=== PATIENT | male | born 1985 | race Caucasian/White ===

== ENCOUNTER 2016-09-14 15:01 | Emergency (ER) | payer BC ==
[~2016-09-14] VITALS: Ht 180.3 cm; Wt 111.0 kg
[2016-09-14 15:03] VITALS: BP 125/67; PULSE 82; RESP 20; TEMP 97.8; O2SAT 95
--- NOTE | 2016-09-14 15:12 | PD ---
Physical Exam Date Seen by Provider: September 14, 2016 Time Seen by Provider: 15:07 Narrative 31 YOWM C/O DEPRESSION OFF MEDS FOR 2 DAYS . IN [facility] FOR 2 WEEKS FROM [place]. HAS PSYCH DR IN [place]. CLAIMS SUICIDAL WITH NO PLAN. VSS wating for bed asignment Data Data Last Documented VS Vital Signs Date Time Temp Pulse Resp B/P Pulse Ox O2 Delivery O2 Flow Rate FiO2 09/14/16 15:03 97.8 82 20 125/67 95 Room Air [facility] Medical Record Reviewed: No Supervised Visit with JE: Neftaly Barrow September 14, 2016 15:12
[2016-09-14] MEDS ORDERED: HALO1TAB PO (15:42)
[2016-09-14] MEDS ORDERED: CLON2TAB PO (15:42)
[2016-09-14 15:51] LABS: AUTOMATED NEUTROPHIL # 4.4 TH/MM3 (1.8-7.7); BASOPHIL # 0.1 TH/MM3 (0-0.2); BASOPHIL % 0.8 % (0.0-2.0); EOSINOPHIL # 0.3 TH/MM3 (0-0.4); EOSINOPHIL % 2.5 % (0.0-4.0); HEMO FLAGS DIFF FINAL; LYMPH % 45.8 % (9.0-44.0); LYMPHOCYTE # 4.7 TH/MM3 (1.0-4.8); MEAN CELL VOLUME 89.1 FL (80.0-100.0); MEAN CORPUSCULAR HEMOGLOBIN 30.9 PG (27.0-34.0); MEAN CORPUSCULAR HGB CONC 34.7 % (32.0-36.0); MONO % 8.1 % (0.0-8.0); NEUT % 42.8 % (16.0-70.0); PLATELET COUNT 417 TH/MM3 (150-450); RED BLOOD COUNT 4.93 MIL/MM3 (4.50-5.90); RED CELL DISTRIBUTION WIDTH 12.6 % (11.6-17.2); WHITE BLOOD COUNT 10.2 TH/MM3 (4.0-11.0)
[2016-09-14 16:01] LABS: AMPHETAMINE, URINE NEG (NEG); BARBITURATES, URINE NEG (NEG); COCAINE, URINE POS (NEG)
--- NOTE | 2016-09-14 16:06 | PD ---
HPI Chief Complaint: Psychiatric Symptoms Time Seen by Provider: 16:05 Travel History International Travel<30 days: No Contact w/Intl Traveler<30days: No Traveled to known affect area: No History of Present Illness HPI 31-year-old male presents to the emergency department voluntarily for psychiatric evaluation. Patient states that he is feeling depressed. He states that he is around a lot of bad influence. He states that his depression started last night. He states that he is snorting cocaine and heroin. He last did this last night. Patient states that he is living in a hotel. He denies any suicidal or homicidal ideation. Patient states that he has a history of anxiety and is on Klonopin. He also states that at one time, he was diagnosed with schizophrenia and is on Haldol, but states that diagnosis was changed to anxiety. Patient denies any medical complaints at this time. [facility] Social History Alcohol Use: No Tobacco Use: Yes Substance Use: Yes (crack and heroin) Allergies-Medications (Allergen,Severity, Reaction): Coded Allergies: Cipro (Verified Allergy, Unknown, rash, 09/14/16) Reported Meds & Prescriptions Reported Meds & Active Scripts Active Reported Haloperidol 1 Mg Tab 1 Mg PO TID Clonazepam 2 Mg Tab 2 Mg PO BID Review of Systems Except as stated in HPI: all other systems reviewed are Neg Physical Exam Narrative GENERAL: Well-nourished, well-developed male patient, afebrile. SKIN: Focused skin assessment warm/dry. HEAD: Normocephalic. Atraumatic. EYES: No scleral icterus. No injection or drainage. NECK: Supple, trachea midline. No JVD or lymphadenopathy. CARDIOVASCULAR: Regular rate and rhythm without murmurs, gallops, or rubs. RESPIRATORY: Breath sounds equal bilaterally. No accessory muscle use. Lungs sounds are clear to auscultation. GASTROINTESTINAL: Abdomen soft, non-tender, nondistended. MUSCULOSKELETAL: No cyanosis, or edema. PSYCHIATRIC: No delusional thought processes. No hallucinations. Data Data Last Documented VS Vital Signs Date Time Temp Pulse Resp B/P Pulse Ox O2 Delivery O2 Flow Rate FiO2 09/14/16 15:42 82 17 09/14/16 15:03 97.8 125/67 95 Room Air Orders Complete Blood Count With Diff (09/14/16 15:12) Comprehensive Metabolic Panel (09/14/16 15:12) Psych Screen (09/14/16 15:12) Drug Screen, Random Urine (09/14/16 15:12) Alcohol (Ethanol) (09/14/16 15:12) Salicylates (Aspirin) (09/14/16 15:12) Tylenol (Acetaminophen) (09/14/16 15:12) Labs Laboratory Tests Test 09/14/16 09/14/16 15:26 16:00 White Blood Count 10.2 TH/MM3 Red Blood Count 4.93 MIL/MM3 Hemoglobin 15.3 GM/DL Hematocrit 44.0 % Mean Corpuscular Volume 89.1 FL Mean Corpuscular Hemoglobin 30.9 PG Mean Corpuscular Hemoglobin 34.7 % Concent Red Cell Distribution Width 12.6 % Platelet Count 417 TH/MM3 Mean Platelet Volume 6.9 FL Neutrophils (%) (Auto) 42.8 % Lymphocytes (%) (Auto) 45.8 % Monocytes (%) (Auto) 8.1 % Eosinophils (%) (Auto) 2.5 % Basophils (%) (Auto) 0.8 % Neutrophils # (Auto) 4.4 TH/MM3 Lymphocytes # (Auto) 4.7 TH/MM3 Monocytes # (Auto) 0.8 TH/MM3 Eosinophils # (Auto) 0.3 TH/MM3 Basophils # (Auto) 0.1 TH/MM3 CBC Comment DIFF FINAL Differential Comment Sodium Level 141 MEQ/L Potassium Level 4.0 MEQ/L Chloride Level 106 MEQ/L Carbon Dioxide Level 27.2 MEQ/L Anion Gap 8 MEQ/L Blood Urea Nitrogen 10 MG/DL Creatinine 1.05 MG/DL Estimat Glomerular Filtration 84 ML/MIN Rate Random Glucose 76 MG/DL Calcium Level 9.4 MG/DL Total Bilirubin 0.4 MG/DL Aspartate Amino Transf 22 U/L (AST/SGOT) Alanine Aminotransferase 49 U/L (ALT/SGPT) Alkaline Phosphatase 51 U/L Total Protein 7.2 GM/DL Albumin 3.8 GM/DL Urine Opiates Screen POS Acetaminophen Level 3.5 MCG/ML Urine Barbiturates Screen NEG Urine Amphetamines Screen NEG Urine Benzodiazepines Screen POS Urine Cocaine Screen POS Urine Cannabinoids Screen NEG Ethyl Alcohol Level LESS THAN 3 MG/DL Salicylates Level 2.9 MG/DL MDM Medical Decision Making Medical Screen Exam Complete: Yes Emergency Medical Condition: Yes Medical Record Reviewed: Yes Differential Diagnosis Depression versus anxiety versus bipolar disorder versus substance abuse Narrative Course 31-year-old male presents to the emergency department voluntarily for psychiatric evaluation. CBC, CMP, alcohol level, urine drug screen, salicylate level, Tylenol level are ordered and pending. CBC shows no acute abnormality. CMP is unremarkable. Urine drug screen is positive for opiates, benzodiazepines, cocaine. Acetaminophen level is 3.5. Salicylate level is 2.9. Alcohol level is less than 3. Patient is medically cleared for psychiatric screening and disposition. Mental health screening discussed with the patient. Psychiatric screen ordered. Diagnosis Primary Impression: Depression Qualified Code: F32.9 - Depression, unspecified depression type Additional Impression: Polysubstance abuse Additional Instructions: Patient is medically cleared for psychiatric screening and disposition. Condition: Stable Amira Guzman September 14, 2016 16:06
[2016-09-14 16:29] LABS: ALT (GPT) 49 U/L (12-78); ANION GAP 8 MEQ/L (5-15); AST (GOT) 22 U/L (15-37); BICARBONATE 27.2 MEQ/L (21.0-32.0); BLOOD UREA NITROGEN 10 MG/DL (7-18); CHLORIDE 106 MEQ/L (98-107); GLOMERULAR FILTRATION RATE 84 ML/MIN (>89); SODIUM (NA) 141 MEQ/L (136-145)
[2016-09-14 16:31] LABS: ACETAMINOPHEN 3.5 MCG/ML (10.0-30.0); ALKALINE PHOSPHATASE 51 U/L (45-117); TOTAL BILIRUBIN ADULT 0.4 MG/DL (0.2-1.0)
[2016-09-14 17:41] VITALS: BP 122/67; TEMP 97.8
[2016-09-14 18:05] VITALS: BP 133/73; PULSE 76; RESP 20; TEMP 98.2; O2SAT 99
== END 2016-09-14 20:01 | disposition home or self-care (01) ==
LOC: NEPD 15:01 → NEPJ 20:01
DX: F19.14 Other psychoactive substance abuse with psychoactive substance-induced mood disorder (principal); F32.9 Major depressive disorder, single episode, unspecified; Z72.0 Tobacco use
CPT/HCPCS: 80053; 80307; 85025; 99284